=== PATIENT | female | born 1995 | race African-American/Black ===

== ENCOUNTER 2021-09-17 02:16 | Emergency (ER) | payer BC ==
[~2021-09-17] VITALS: Ht 180.3 cm; Wt 82.0 kg
[2021-09-17] MEDS ORDERED: VISCOUS LIDOCAINE 2% 15 ML UDC MM STA (03:05)
[2021-09-17] MEDS ORDERED: SODIUM CHLORIDE 0.9% 1,000 ML IV ONE (03:15)
[2021-09-17] MEDS ORDERED: DEXAMETHASONE 10 MG/ML VIAL IV ONE (03:15)
[2021-09-17] MEDS ORDERED: KETOROLAC 15MG/ML VIAL IV ONE (03:15)
[2021-09-17] MEDS ORDERED: CEFTRIAXONE 2 G PREMIX 50 ML IV ONE (03:15)
[2021-09-17] MEDS ORDERED: LIDOCAINE HCL/EPINEPHRINE 1%-EPI 1:100,000 20 ML VIAL INFIL ONE (03:15)
[2021-09-17] MEDS ORDERED: CLINDAMYCIN 600 MG in DEXTROSE 5% WATER 50 ML IV ONE (03:15)
[2021-09-17] MEDS ORDERED: TETRACAINE/BENZOCAINE/BUTAMBEN 20 GM SPRAY MM NR (03:30)
[2021-09-17] MEDS ORDERED: CLINDAMYCIN 600MG PREMIX 50 ML IV NR (04:00)
[2021-09-17 04:09] VITALS: BP 120/73
[2021-09-17] MEDS ORDERED: IBUP-2028 MT (05:39)
[2021-09-17] MEDS ORDERED: TOPUD MT (05:39)
[2021-09-17] MEDS ORDERED: CLIN300C12 MT (05:39)
== END 2021-09-17 06:20 | disposition home or self-care (01) ==
LOC: ER 02:16
DX: J36 Peritonsillar abscess (principal)
CPT/HCPCS: 42700; 96374; 96375; 99284; J0696; J1100; J1885; J3490; J7030; Z7610; J7060